=== PATIENT | female | born 1975 | race Two or more races ===

== ENCOUNTER → 2016-10-05 | Outpatient (REF) | payer OTHER | LOC: M SFHCLERA 16:07 | PROVIDERS: ATTEND Physician Assistant | DX: Z20.818 Contact with and (suspected) exposure to other bacterial communicable diseases (principal) ==

== ENCOUNTER → 2016-11-29 | Outpatient (CLI) | payer OTHER ==
--- NOTE | 2016-11-29 15:49 | REP ---
Digital diagnostic bilateral mammography with CAD and focused right breast sonography: History: Palpable lump times 3 weeks right breast. No comparison imaging available. Mammographic findings: Implant included and implant displaced views of each breast were obtained in the CC and MLO plane. In addition, a skin marker is affixed to the skin at the site of the palpable lump in the right breast and magnified focal spot compression images of the right breast were obtained. The breast parenchyma is heterogeneously dense. Silicone retropectoral implants are noted bilaterally. The anterior and visualized margins of the implants are smooth bilaterally. There is no mammographic evidence to suggest extracapsular implant disruption. Images at the level of the palpable lump show normal dense breast parenchyma. No soft tissue mass, spiculation or architectural distortion is seen. No worrisome calcification or skin change is seen. Sonographic findings: The patient's right breast is scanned from 10 o'clock to 12 o'clock with the palpable lump at the 11 o'clock position. There is heterogeneous fibroglandular background echotexture. There is a 5 mm oval-shaped anechoic area at 10 o'clock consistent with a small focally dilated duct. At 11-o'clock there is an 8 mm x 6 mm x 4 mm cystic area, 2.4 cm from the nipple. This likely corresponds to the palpable abnormality. At 12 o'clock, there is a 6 x 6 x 4 mm cyst 1.7 cm from the nipple. No sonographically suspicious finding. Visualized implant margins are unremarkable. Impression: BIRADS category 2 benign bilateral breast imaging. Cyst identified in the area of the palpable lump by ultrasound. BI-RADS/ACR category 2 mammogram. Benign finding(s). Routine annual screening mammography (for women over age 40). This negative report should not dissuade one from biopsy of a palpable lump depending on its clinical characteristics. Clinical follow-up is advised. This mammogram was interpreted with the aid of an FDA-approved computer-aided detection system. The patient states that she/he has not had a clinical breast exam in over a year. The patient letter being requested is M2 dense. Signed by Randall Sellers MD 11/29/2016 04:40 P
== END ==
LOC: M RAD 13:44
PROVIDERS: ATTEND Family Medicine
DX: Z12.31 Encounter for screening mammogram for malignant neoplasm of breast (principal); N63 Unspecified lump in breast
CPT/HCPCS: 76642; G0204

== ENCOUNTER → 2017-02-17 | Outpatient (REF) | payer OTHER | LOC: M SFHCLERA 14:30 | PROVIDERS: ATTEND Physician Assistant | DX: R30.0 Dysuria (principal) ==